=== PATIENT | male | born 1965 | race Caucasian/White ===

== ENCOUNTER 2017-06-20 09:23 | Inpatient (IN) | payer BC ==
[2017-05-26 08:02] VITALS: Ht 182.9 cm; Wt 152.8 kg
--- NOTE | 2017-05-26 08:44 | PAT Medication Instructions ---
Service Date May 26, 2017. Current Home Medication List Glimepiride (Glimepiride), 2 TAB PO QAM Ibuprofen (Motrin), 600 MG PO Q6H PRN for Pain Simvastatin (Zocor), 40 MG PO QPM Medication Instructions For Your Scheduled Surgery - Hold the following medications per surgeon's instructions: Ibuprofen (Motrin), 600 MG PO Q6H PRN for Pain - Hold the following medications the morning of surgery: Glimepiride (Glimepiride), 2 TAB PO QAM - Take the following medications as scheduled the night before surgery: Simvastatin (Zocor), 40 MG PO QPM Nothing to eat or drink after midnight If you have any questions please call us at [phone] or [phone] or [phone]
--- NOTE | 2017-05-26 09:19 | DIAGNOSTIC IMAGING REPORT ---
CHEST 2 VIEWS ROUTINE CLINICAL HISTORY: pat preoperative evaluation COMPARISON STUDY: No previous studies for comparison. FINDINGS: The bones soft tissues and hemidiaphragms are normal. The cardiomediastinal silhouette is normal. The lungs are clear. The pulmonary vasculature is normal. IMPRESSION: Negative chest. The above report was generated using voice recognition software. It may contain grammatical, syntax or spelling errors. Electronically signed by: Kieran Tyler M.D. 05/26/2017 9:18 AM Dictated Date/Time: 05/26/2017 9:18 AM
[2017-05-26 09:36] LABS: BASO % 0.4 %; BASO ABS # 0.03 K/uL (0-0.2); COMPLETE YES; EOS % 0.8 %; HEMATOCRIT 47.7 % (42-52); IG% 0.4 %; LYMPH % 26.6 %; MEAN CELL VOLUME 88.2 fL (80-100); MEAN CORPUSCULAR HEMOGLOBIN 31.1 pg (25-34); MEAN CORPUSCULAR HGB CONC 35.2 g/dl (32-36); MEAN PLATELET VOLUME 9.6 fL (7.4-10.4); MONO % 7.5 %; NEUT % 64.3 %; PLATELET COUNT 214 K/uL (130-400); RED BLOOD COUNT 5.41 M/uL (4.7-6.1); WHITE BLOOD COUNT 8.27 K/uL (4.8-10.8)
[2017-05-26 09:41] LABS: URINE APPEARANCE CLEAR (CLEAR); URINE BILIRUBIN NEG (NEG); URINE COLOR YELLOW; URINE EPITHELIAL CELL AUTO 0-5 /lpf (0-5); URINE NITRITE NEG (NEG); URINE PH 5.5 (4.5-7.5); URINE SPECIFIC GRAVITY 1.019 (1.000-1.030); UROBILINOGEN NEG (NEG)
[2017-05-26 09:43] LABS: MANUAL MICROSCOPIC REQUIRED? NO; REVIEW REQ? NO
[2017-05-26 09:54] LABS: PARTIAL THROMBOPLASTIN RATIO 1.1; PROTHROMBIN TIME (PATIENT) 10.5 SECONDS (9.0-12.0)
[2017-05-26 10:31] LABS: ESTIMATED AVERAGE GLUCOSE 166 mg/dl; HA1C FLAG Normal (Normal)
[2017-05-26 10:51] LABS: BUN/CREATININE RATIO 11.6 (10-20); CALCIUM 9.5 mg/dl (8.5-10.1); CREATININE 0.91 mg/dl (0.60-1.40); POTASSIUM 4.4 mmol/L (3.5-5.1)
[2017-06-20] VITALS (8 sets, daily range): BP systolic 114–145; BP diastolic 71–104; PULSE 69–94; TEMP 36.5–36.8; O2SAT 92–98
[~2017-06-20] VITALS: Ht 182.9 cm; Wt 152.8 kg
[2017-06-20] MEDS: TRANEXAMIC ACID INJ 1,000 MG in SODIUM CHLORIDE 0.9% 100ML 100 ML IV SCH ×2 (06:00→06:30)
--- NOTE | 2017-06-20 08:19 | HISTORY & PHYSICAL EXAMINATION ---
DATE OF ADMISSION: 06/20/2017 HISTORY OF PRESENT ILLNESS: The patient presents as a 51-year-old white male who presents with complaints of severe end-stage right knee DJD, who has failed attempts at conservative management including physical therapy, anti-inflammatories, relative rest, activity modification, corticosteroid injections, and viscosupplementation. He presents after thorough discussion regarding risks, complications for total knee arthroplasty, postoperative pain management, and DVT prophylaxis. PAST MEDICAL HISTORY: Consistent with hypertension. He has had previous history of angioplasty in [place] with Dr. Devlin. No history of diabetes or thyroid disease. 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 Past medical history is otherwise unremarkable. FAMILY HISTORY: Unremarkable and noncontributory. SOCIAL HISTORY: The patient denies history of smoking. He relates 6 alcoholic drinks per week. No recreational drug use is noted. PAST SURGICAL HISTORY: Significant for hernia surgery and tonsillectomy surgery. ALLERGIES: SULFA DRUGS. MEDICATIONS: Include simvastatin 40 mg daily, glyburide 4 mg p.o. q. daily, and meloxicam 15 mg p.o. daily. REVIEW OF SYSTEMS: See history of present illness for pertinent positives. PHYSICAL EXAMINATION: GENERAL: Reveals a very pleasant 51-year-old male, alert and oriented x3 in no acute distress. HEENT: Otherwise atraumatic and normocephalic. HEART: Irregular at 70 beats per minute. No murmurs noted. LUNGS: Clear. No rales, rhonchi, or wheezes noted. ABDOMEN: Soft, nontender, and nondistended. Bowel sounds are present in all 4 quadrants. RECTAL: Not performed. MUSCULOSKELETAL: Consistent with severe end-stage tricompartmental degenerative joint disease with varus alignment and subchondral cyst. PLAN: For total knee arthroplasty, postoperative pain management, DVT prophylaxis, and antibiotics as necessary.
[~2017-06-20 09:23] MED LIST: ACETAMINOPHEN 500 MG TAB PO SCH; BUPIVACAINE 0.25% 30 ML VIAL ONE; BUPIVACAINE 0.5 % 5 MG/1 ML PF 10ML VIAL ONE; CEFAZOLIN 3000 MG/65 ML D5W 65 ML IV SCH; CeleBREX 200 MG CAP PO SCH; DEXAMETHASONE 4 MG TAB PO SCH; FAMOTIDINE 20 MG TAB PO SCH; GABAPENTIN 300 MG CAP PO SCH; GLIM4TAB2 PO; IBUP600T44 PO; LACTATED RINGER'S 1000ML 1,000 ML IV SCH; LACTATED RINGER'S 1000ML 500 ML IV ONE; METOCLOPRAMIDE HCL 10 MG TAB PO SCH; ROPIVACAINE 5MG/ML 30 ML 150 MG, BUPIVACAINE/EPINEPHR 0.5% MPF 30 ML, KETOROLAC TROMETH... INFIL SCH; SIMV40TA2 PO
[2017-06-20] MEDS ORDERED: LIDOCAINE HCL 2% 2 ML VIAL (20MG/ML) ONE (09:54)
[2017-06-20] MEDS ORDERED: PROPOFOL IV EMULSION 10 MG/ML 20 ML VIAL IV ONE (09:54)
[2017-06-20] MEDS ORDERED: MIDAZOLAM HCL 1 MG/ML 2ML VIAL ONE ×2 (09:55→13:01)
--- NOTE | 2017-06-20 11:01 | History & Physical Bridge Note ---
H&P Re-Evaluation Bridge Note: I have examined the patient, reviewed the History & Physical and in the interval since the performance of the History & Physical I have noted the following changes of clinical significance: No changes noted
--- NOTE | 2017-06-20 11:09 | History & Physical Bridge Note ---
H&P Re-Evaluation Bridge Note: I have examined the patient, reviewed the History & Physical and in the interval since the performance of the History & Physical I have noted the following changes of clinical significance: please note the the H and P was amended to be left knee is the correct kneeNo changes noted
[2017-06-20] MEDS ORDERED: BACITRACIN 50000 UNIT VIAL ONE (11:39)
[2017-06-20] MEDS ORDERED: ORTHO JOINT ANESTHETIC ONE (11:39)
[2017-06-20] MEDS ORDERED: POVIDONE-IODINE OP SOLN 30 ML BTL ONE (11:39)
[2017-06-20] MEDS ORDERED: PHENYLEPHRINE 100MCG/ML 5ML SYR IV PRN (12:30)
[2017-06-20] MEDS ORDERED: EpHEDrine SULFATE INJ 50 MG/ML AMP IV PRN (12:30)
[2017-06-20] MEDS ORDERED: KETOROLAC TROMETHAMINE 30 MG/ML VIAL IV. PRN (12:30)
[2017-06-20] MEDS ORDERED: HYDROmorphone INJ 2 MG/ML SYR/VIAL IV PRN (12:30)
[2017-06-20] MEDS ORDERED: ONDANSETRON INJ 2 MG/ML 2 ML VIAL IV PRN ×2 (12:30→13:45)
[2017-06-20] MEDS ORDERED: ATROPINE SULFATE 0.1 MG/ML 5ML SYR IV PRN (12:30)
--- NOTE | 2017-06-20 13:14 | [facility] Operative Report ---
Operative Report Operative Date Jun 20, 2017. Pre-Operative Diagnosis Left knee degenerative joint disease Post-Operative Diagnosis Left knee degenerative joint disease Procedure(s) Performed Left Total Knee Arthroplasty utilizing [employer] journey to patient matched total knee arthroplasty size 8 femur 7 tibia 12 Shirley [address] Maxwell Perry [employer] Mechanic Surgeon(s) Rogelio Mendez PA-C Estimated Blood Loss 5mL Findings Severe end-stage tricompartment degenerative joint disease unresponsive to conservative therapy Specimens Specimen A. Left knee bone and tissue Complication(s) None Disposition Recovery Room / PACU Indications Severe as a truck [place] degenerative joint disease left knee not responsive to conservative therapy failed attempted injections relative rest activity modification and presents for total knee arthroplasty Description of Procedure After proper prepping and draping of the left lower extremity anterior midline incision was made over the region of the extensor extensor mechanism after meticulous hemostasis was obtained and maintained in subcutaneous tissues a medial parapatellar incision was made The patella was subluxed lateralward the medial lateral gutter were cleaned from any hypertrophic synovitis and scar tissue of the distal femoral block was placed and the distal femoral osteotomy cut was made subsequently the chamfers anterior and posterior osteotomy cuts were made utilizing the 4-in-1 block the tibia was subsequently subluxed anteriorward medial and ateral meniscal remnants were excised in their entirety remnants of the anterior and posterior cruciate ligaments were excised in their entirety excellent exposure of the proximal tibia was obtained the tibial osteotomy guide was placed on the proximal tibial osteotomy cut was made once again the knee was irrigated with copious amounts of sterile saline solution the patella was subsequently everted lateralward thickened scar tissue around the patella was removed the patella was subsequently cut utilizing a freehand technique and was drilled prepared for final preparation and placement of patella socially flexion-extension gaps were checked and the equal and symmetric trials were placed to the appropriate femoral and tibial trials with poly-spacer being placed for equal flexion and extension gaps and full range of motion including extension to 0 and flexion to 140 the trial components after having been taken to recovery range of motion was subsequently removed meticulous hemostasis was obtained and maintained subsequently a knee block injection of joint cocktail including ropivacaine 0.5% 150 mg. Bupivacaine 0.5 % epinephrine 1-200,030 mL's toradol 30 mg dexamethasone 4 mg ketamine 10 mg clonidine 100 micrograms normal saline solution 30 mg was infiltrated into the soft tissues of the posterior knee medial lateral gutters and periosteal synovium special attention was paid to protect neurovascular structures at all times subsequently trial components having been removed the knee was irrigated with sterile saline solution. debris was removed the proximal tibia was subsequently prepared and was made ready for the placement of the tibial component tibial component was also cemented and tamped into position the femoral component was subsequently placed and cemented in the position the patellar component was subsequently cemented in position because hemostasis once again obtained and maintained wound having been thoroughly irrigated with debridement and debridement lavage was performed as well as a medial parapatellar incision closed with #1 Vicryl in interrupted fashion subcutaneous was closed with #2 Vicryl skin was closed with skin clips. PA-C was necessary for prepping and drapping as well as wound closure of deep fascia Sub cutaneous tissue and skin and was necessary for the case. A sterile compressive dressing was placed patient was taken to recovery in stable condition of report dictated by Orlando I attest to the content of the Intraoperative Record and any orders documented therein. Any exceptions are noted below. I attest to the content of the Intraoperative Record and any orders documented therein. Any exceptions are noted below.
[2017-06-20] MEDS ORDERED: BISACODYL 10 MG SUPP PR PRN (13:45)
[2017-06-20] MEDS ORDERED: MoRPHine SULFATE 2 MG/ML CARP IV PRN ×2 (13:45→16:00)
[2017-06-20] MEDS ORDERED: MAGNESIUM HYDROXIDE SUSP 30 ML UDC PO PRN (13:45)
[2017-06-20] MEDS ORDERED: ALUMINUM/MAGNESIUM/SIMETH (MAALOX MAX) 30 ML UDC PO PRN (13:45)
--- NOTE | 2017-06-20 14:16 | Anesthesiology Progress Note ---
Anesthesia Post Op Note Date & Time Jun 20, 2017 at 14:16 Vital Signs Pain Intensity: 0 Vital Signs Past 12 Hours Date Time Temp Pulse Resp B/P (MAP) Pulse Ox O2 Delivery O2 Flow Rate FiO2 06/20/17 14:05 70 18 132/82 96 Nasal Cannula 2 06/20/17 13:55 76 18 114/75 96 Nasal Cannula 2 06/20/17 13:53 114/75 06/20/17 13:53 114/75 06/20/17 13:51 53/49 06/20/17 13:51 53/49 06/20/17 13:50 75 13 06/20/17 13:50 75 13 95 06/20/17 13:50 75 13 06/20/17 13:50 75 13 95 06/20/17 13:45 79 13 110/67 95 06/20/17 13:45 79 13 06/20/17 13:45 79 13 06/20/17 13:45 36.4 76 18 110/67 98 Nasal Cannula 2 06/20/17 13:45 79 13 110/67 95 06/20/17 10:31 36.6 86 18 143/104 93 Room Air Notes Mental Status: alert / awake / arousable, participated in evaluation Pt Amnestic to Procedure: Yes Nausea / Vomiting: adequately controlled Pain: adequately controlled Airway Patency, RR, SpO2: stable & adequate BP & HR: stable & adequate Hydration State: stable & adequate Anesthetic Complications: no major complications apparent
--- NOTE | 2017-06-20 14:16 | DIAGNOSTIC IMAGING REPORT ---
LEFT KNEE 1 OR 2 VIEWS ROUTINE CLINICAL HISTORY: Osteoarthritis. Postop study. COMPARISON: None. DISCUSSION: There are postsurgical changes of a total left knee arthroplasty and patellar resurfacing. The femoral and tibial components appear well seated. Overlying skin kendal and surgical drains are evident. There is air within the soft tissues consistent with recent surgery. IMPRESSION: Postsurgical changes of a total left knee arthroplasty Electronically signed by: Karl Aldridge M.D. 06/20/2017 2:15 PM Dictated Date/Time: 06/20/2017 2:14 PM
[2017-06-20] MEDS ORDERED: GLUCOSE 10 TABS/TUBE PO PRN (15:00)
[2017-06-20] MEDS ORDERED: GLUCAGON FOR INJ 1 MG VIAL SQ PRN (15:00)
[2017-06-20] MEDS ORDERED: GLUCOSE 40% GEL 15 GM TUBE PO PRN (15:00)
[2017-06-20] MEDS ORDERED: DEXTROSE 50% 50 ML SYR IV PRN (15:00)
[2017-06-20] MEDS ORDERED: MoRPHine SULFATE 10 MG/ML CARP/VIAL IV PRN (16:00)
[2017-06-20] MEDS ORDERED: MoRPHine SULFATE 4 MG/ML 1 ML CARP\\VIAL IV PRN (16:00)
[2017-06-20] MEDS: SODIUM CHLORIDE 0.9% 1000ML 1,000 ML IV SCH (16:12)
[2017-06-20] MEDS: ACETAMINOPHEN 500 MG TAB PO SCH ×2 (16:13→21:41)
[2017-06-20] MEDS ORDERED: PNEUMOCOCCAL ADMINISTRATION CHARGE ONE (16:30)
[2017-06-20] MEDS ORDERED: PNEUMOCOCCAL POLYSACCHARIDES 25 MCG/0.5 ML VIAL/SYR IM. ONE (16:30)
[2017-06-20] MEDS: INSULIN ASPART 100 UNITS/ML 3 ML PEN SC SCH ×2 (17:23→21:42)
[2017-06-20] MEDS: FERROUS GLUCONATE 324 MG TAB PO SCH (17:24)
[2017-06-20] MEDS: KETOROLAC TROMETHAMINE 30 MG/ML VIAL IV. SCH (19:07)
[2017-06-20] MEDS: CEFAZOLIN IV 2,000 MG in DEXTROSE 5% 50ML 50 ML IV SCH (20:19)
[2017-06-20] MEDS: SIMVASTATIN 40 MG TAB PO SCH (20:33)
[2017-06-20] MEDS: ASPIRIN 81 MG ECTAB PO SCH (20:33)
[2017-06-20] MEDS: DOCUSATE SODIUM 100 MG CAP PO SCH (20:33)
[2017-06-20] MEDS: OXYCODONE HCL 10 MG TABCR (OXYCONTIN) PO SCH (20:33)
[2017-06-20] MEDS: SENNA 8.6 MG TAB PO SCH (20:33)
[2017-06-21] MEDS: SODIUM CHLORIDE 0.9% 1000ML 1,000 ML IV SCH ×2 (00:10→11:10)
[2017-06-21] MEDS: KETOROLAC TROMETHAMINE 30 MG/ML VIAL IV. SCH ×3 (00:45→13:50)
[2017-06-21 04:07] VITALS: BP 146/71; PULSE 97; TEMP 36.7; O2SAT 98
[2017-06-21] MEDS: CEFAZOLIN IV 2,000 MG in DEXTROSE 5% 50ML 50 ML IV SCH (04:07)
[2017-06-21] MEDS ORDERED: LACTATED RINGER'S 1000ML 500 ML IV ONE (06:00)
[2017-06-21] MEDS ORDERED: GABAPENTIN 300 MG CAP PO SCH (06:00)
[2017-06-21] MEDS ORDERED: ACETAMINOPHEN 500 MG TAB PO SCH (06:00)
[2017-06-21] MEDS ORDERED: CeleBREX 200 MG CAP PO SCH (06:00)
[2017-06-21] MEDS ORDERED: LACTATED RINGER'S 1000ML 1,000 ML IV SCH ×2 (06:00)
[2017-06-21] MEDS ORDERED: DEXAMETHASONE 4 MG TAB PO SCH (06:00)
[2017-06-21] MEDS ORDERED: ROPIVACAINE 5MG/ML 30 ML 150 MG, BUPIVACAINE/EPINEPHR 0.5% MPF 30 ML, KETOROLAC TROMETH... INFIL SCH ×7 (06:00)
[2017-06-21] MEDS ORDERED: TRANEXAMIC ACID INJ 1,000 MG in SODIUM CHLORIDE 0.9% 100ML 100 ML IV SCH (06:00)
[2017-06-21] MEDS ORDERED: FAMOTIDINE 20 MG TAB PO SCH (06:00)
[2017-06-21] MEDS ORDERED: METOCLOPRAMIDE HCL 10 MG TAB PO SCH (06:00)
[2017-06-21] MEDS ORDERED: CEFAZOLIN 3000 MG/65 ML D5W 65 ML IV SCH (06:00)
[2017-06-21] MEDS: ACETAMINOPHEN 500 MG TAB PO SCH ×3 (06:24→21:34)
[2017-06-21 07:03] VITALS: BP 137/80; PULSE 84; TEMP 36.5; O2SAT 98
[2017-06-21 08:25] LABS: HEMATOCRIT 43.9 % (42-52); MEAN CELL VOLUME 86.1 fL (80-100); MEAN CORPUSCULAR HEMOGLOBIN 31.2 pg (25-34); MEAN CORPUSCULAR HGB CONC 36.2 g/dl (32-36); MEAN PLATELET VOLUME 9.7 fL (7.4-10.4); PLATELET COUNT 263 K/uL (130-400)
[2017-06-21] MEDS: ASPIRIN 81 MG ECTAB PO SCH ×2 (08:29→21:33)
[2017-06-21] MEDS: PANTOprazole SOD 40 MG TAB PO SCH (08:29)
[2017-06-21] MEDS: GLIMEPIRIDE 2 MG TAB PO SCH (08:30)
[2017-06-21] MEDS: FERROUS GLUCONATE 324 MG TAB PO SCH ×3 (08:30→18:21)
[2017-06-21] MEDS: OXYCODONE HCL 10 MG TABCR (OXYCONTIN) PO SCH ×2 (08:30→21:32)
[2017-06-21] MEDS: DOCUSATE SODIUM 100 MG CAP PO SCH ×2 (08:30→21:33)
[2017-06-21] MEDS: MULTIVITAMIN TAB PO SCH (08:30)
--- NOTE | 2017-06-21 08:33 | Orthopedic Progress Note ---
Orthopedic Progress Note Date of Service Jun 21, 2017. Subjective Post OP Day: 1 (s/p Right TKA) Reports: feeling well, pain controlled w PO medications, Denies: complaints, chest pain, SOB, nausea / vomiting, light headedness, calf pain Objective calves soft nontender, N/V intact, capillary refill less than 2 sec., dressing C /D/I, A&O x3, toes mobile, hemovac drainage (225cc/8 hours) Date Time Temp Pulse Resp B/P (MAP) Pulse Ox O2 Delivery O2 Flow Rate FiO2 06/21/17 08:20 Room Air 06/21/17 07:03 36.5 84 19 137/80 (99) 98 Room Air 06/21/17 04:07 36.7 97 16 146/71 (96) 98 Room Air 06/21/17 00:13 Nasal Cannula 2.0 06/20/17 23:38 36.8 92 16 122/71 (88) 98 Nasal Cannula 2.0 06/20/17 20:39 36.6 94 16 114/81 (92) 95 Room Air 06/20/17 18:18 36.5 69 18 134/77 (96) 92 Nasal Cannula 2.0 06/20/17 17:18 36.5 75 18 145/79 (101) 95 Nasal Cannula 2.0 06/20/17 16:16 36.6 69 20 144/90 (108) 96 Nasal Cannula 2.0 06/20/17 15:47 36.5 72 20 134/84 (101) 95 Nasal Cannula 2.0 06/20/17 15:15 97 Nasal Cannula 2.0 06/20/17 15:15 97 Nasal Cannula 2.0 06/20/17 15:15 36.6 72 16 131/82 (98) 97 Nasal Cannula 2.0 06/20/17 15:00 77 18 119/78 97 Nasal Cannula 2 06/20/17 14:45 66 18 122/76 97 Nasal Cannula 2 06/20/17 14:35 70 18 109/80 97 Nasal Cannula 2 06/20/17 14:25 36 70 18 122/77 97 Nasal Cannula 2 06/20/17 14:15 70 18 122/81 96 Nasal Cannula 2 06/20/17 14:05 70 18 132/82 96 Nasal Cannula 2 06/20/17 13:55 76 18 114/75 96 Nasal Cannula 2 06/20/17 13:53 114/75 06/20/17 13:53 114/75 06/20/17 13:51 53/49 06/20/17 13:51 53/49 06/20/17 13:50 75 13 06/20/17 13:50 75 13 95 06/20/17 13:50 75 13 06/20/17 13:50 75 13 95 06/20/17 13:45 79 13 110/67 95 06/20/17 13:45 79 13 06/20/17 13:45 79 13 06/20/17 13:45 36.4 76 18 110/67 98 Nasal Cannula 2 06/20/17 13:45 79 13 110/67 95 06/20/17 10:31 36.6 86 18 143/104 93 Room Air Laboratory Results 24 Hours: Test 06/21/17 08:02 Hematocrit 43.9 % Hemoglobin 15.9 g/dL Assessment & Plan Assessment: POD #1 s/p Right TKA -PT/OT -dvt proph with nataliya/scd/asa -plan for d/c home with HHPT when stable Discharge Planning Discharge Planning: home with home health DVT Prophylaxis: TEDs, SCDs, ASA Therapy: Physical Therapy
[2017-06-21] MEDS: INSULIN ASPART 100 UNITS/ML 3 ML PEN SC SCH ×4 (08:41→21:32)
[2017-06-21 08:55] LABS: BUN/CREATININE RATIO 12.4 (10-20); CALCIUM 8.9 mg/dl (8.5-10.1); CREATININE 1.1 mg/dl (0.60-1.40); POTASSIUM 4.1 mmol/L (3.5-5.1)
--- NOTE | 2017-06-21 09:23 | Anesthesiology Progress Note ---
Anesthesia Post Op Note Date & Time Jun 21, 2017 at 09:23 Vital Signs Pain Intensity: 2.0 Vital Signs Past 12 Hours Date Time Temp Pulse Resp B/P (MAP) Pulse Ox O2 Delivery O2 Flow Rate FiO2 06/21/17 08:20 Room Air 06/21/17 07:03 36.5 84 19 137/80 (99) 98 Room Air 06/21/17 04:07 36.7 97 16 146/71 (96) 98 Room Air 06/21/17 00:13 Nasal Cannula 2.0 06/20/17 23:38 36.8 92 16 122/71 (88) 98 Nasal Cannula 2.0 Notes Mental Status: alert / awake / arousable, participated in evaluation Pt Amnestic to Procedure: Yes Nausea / Vomiting: adequately controlled Pain: adequately controlled Airway Patency, RR, SpO2: stable & adequate BP & HR: stable & adequate Hydration State: stable & adequate Neuraxial Anesthesia: was administered, sensory block resolved Anesthetic Complications: no major complications apparent
[2017-06-21 12:06] VITALS: BP 143/73; PULSE 81; TEMP 36.8; O2SAT 97
--- NOTE | 2017-06-21 14:31 | Discharge Instructions ---
Discharge Instructions Date of Service Jun 21, 2017. Admission Reason for Admission: Right Knee Osteoarthritis Discharge Discharge Diagnosis / Problem: right total knee replacement Discharge Goals Goal(s): Decrease discomfort, Improve function, Increase independence Activity Recommendations Activity Limitations: as noted below Weightbearing Status: Right weightbearing (as tolerated) . Instructions / Follow-Up Instructions / Follow-Up ACTIVITY RECOMMENDATIONS: SELF CARE INSTRUCTIONS AFTER TOTAL KNEE REPLACEMENT A. You may need to continue a physical therapy program after discharge from the hospital. There are several options available to you. Your doctor will assist you in selecting the best one for you. 1. An out-patient facility 2 to 3 times a week for therapy or home therapy. 2. Continue working on all exercises taught to you in the hospital. Your goals should be to increase bending of your knee to 90 degrees and beyond and to fully straighten your knee. B. You may progress at your own pace from walking with a walker or crutches to a cane; then to no assistive devices. C. Make walking a part of your daily routine. Be up as much as comfortable with rest periods throughout the day. Rest with leg elevation is very important. Use the ice wrap frequently for the first 3-4 weeks. D. There are no restrictions on activities. You may ride in a car, shop, participate in potato pancake frier and all social activities. E. Wear the long elastic stockings (RAN hose) 20 hours a day for 2 weeks after surgery. They can be removed several times a day for laundering and for a bath. F. You may shower, no tub baths until cleared by your doctor. SPECIAL CARE INSTRUCTIONS: VERY IMPORTANT TO READ AND REVIEW A. There are a few signs you need to watch for after you are home. Call [facility] if you notice any of the followin. Increased severe knee pain. Some pain is expected especially when you exercise. 2. Increased swelling in your leg or knee; pain or swelling of the calf muscle in either lower leg. 3. Any fluid drainage from the incision. 4. Shortness of breath or chest pain. B. Please call [facility] at if you have any concerns or questions about your operation or recovery. The doctor or his nurse will return your call promptly. C. You must take antibiotics before dental work, bladder, bowel or other surgery. Your doctor will provide you with a permanent care to carry describing this precaution. IMPORTANT: * REMEMBER TO TAKE ASPIRIN, 81 MG, TWICE DAILY FOR 4 WEEKS UNLESS OTHERWISE DIRECTED. THIS IS YOUR BLOOD THINNER. * HIGH RISK PATIENTS MAY BE PRESCRIBED A STRONGER BLOOD THINNER. THIS WILL BE PROVIDED AT DISCHARGE. * CALL IF INCREASED PAIN, REDNESS, DRAINAGE OR FEVER GREATER THAT 101. * WEAR RAN HOSE 20 HOURS PER DAY FOR 2 WEEKS. * YOU MAY HAVE A LARGE BAND-AID LIKE DRESSING (SILVERON). THIS WILL REMAIN ON YOUR INCISION FOR 7 DAYS, THEN CAN BE REMOVED. IF INCISION IS LEAKING THROUGH DRESSING, CALL THE OFFICE . FOLLOW UP VISIT: If appointment is not already scheduled: Please call [facility] to make a follow-up appointment for 2 weeks after your surgery at . Current Hospital Diet Patient's current hospital diet: Diabetes Type 2 Diet Discharge Diet Recommended Diet: Diabetes Type 2 Diet Procedures Procedures Performed: Left Total Knee Arthroplasty utilizing [employer] journey to patient matched total knee arthroplasty size 8 femur 7 tibia 12 Shirley 35 oval patella Pending Studies Studies pending at discharge: no Laboratory Results Hemoglobin A1c Test 05/26/17 08:52 Range/Units Estimated Average Glucose 166 mg/dl Hemoglobin A1c 7.4 H 4.5-5.6 % Medical Emergencies . Who to Call and When: Medical Emergencies: If at any time you feel your situation is an emergency, please call 911 immediately. . Non-Emergent Contact Non-Emergency issues call your: Primary Care Provider, Surgeon . "Provider Documentation" section prepared by Kieran Valdez. . VTE Core Measure Inpt VTE Proph given/why not?: Other Anticoagulation (aspirin 81mg po bid x 1 month), Ana Rosa Le, SCD's [place] Drug Monitoring Program Search Results: patient reviewed within database, no issues identified
[2017-06-21 15:10] VITALS: BP 162/80; PULSE 79; TEMP 36.7; O2SAT 96
[2017-06-21 15:45] VITALS: O2SAT 96
[2017-06-21] MEDS: OXYCODONE HCL IR 5 MG TAB (IMMEDIATE RELEASE) PO PRN (21:32)
[2017-06-21] MEDS: SIMVASTATIN 40 MG TAB PO SCH (21:33)
[2017-06-21] MEDS: SENNA 8.6 MG TAB PO SCH (21:33)
[2017-06-21 23:50] VITALS: BP 127/76; PULSE 82; TEMP 36.5; O2SAT 98
[2017-06-22] MEDS: OXYCODONE HCL IR 5 MG TAB (IMMEDIATE RELEASE) PO PRN ×2 (04:10→10:41)
[2017-06-22] MEDS: ACETAMINOPHEN 500 MG TAB PO SCH (05:34)
[2017-06-22 06:39] VITALS: BP 122/75; PULSE 86; TEMP 36.6; O2SAT 96
[2017-06-22 07:13] VITALS: BP 124/79; PULSE 83; TEMP 36.8; O2SAT 95
[2017-06-22] MEDS: GLIMEPIRIDE 2 MG TAB PO SCH (07:24)
[2017-06-22] MEDS: FERROUS GLUCONATE 324 MG TAB PO SCH (07:24)
[2017-06-22] MEDS: PANTOprazole SOD 40 MG TAB PO SCH (07:24)
[2017-06-22] MEDS: MULTIVITAMIN TAB PO SCH (07:25)
[2017-06-22] MEDS: OXYCODONE HCL 10 MG TABCR (OXYCONTIN) PO SCH (07:32)
[2017-06-22] MEDS: ASPIRIN 81 MG ECTAB PO SCH (07:32)
[2017-06-22] MEDS: DOCUSATE SODIUM 100 MG CAP PO SCH (07:32)
[2017-06-22] MEDS: INSULIN ASPART 100 UNITS/ML 3 ML PEN SC SCH (07:40)
--- NOTE | 2017-06-22 07:45 | Orthopedic Progress Note ---
Orthopedic Progress Note Date of Service Jun 22, 2017. Subjective Post OP Day: 2 Reports: feeling well, pain controlled w PO medications, Denies: complaints, chest pain, SOB, nausea / vomiting, light headedness, calf pain Objective calves soft nontender, N/V intact, capillary refill less than 2 sec., dressing C /D/I (silverlon intact), A&O x3, toes mobile Date Time Temp Pulse Resp B/P (MAP) Pulse Ox O2 Delivery O2 Flow Rate FiO2 06/22/17 07:13 36.8 83 20 124/79 (94) 95 Room Air 06/22/17 06:39 36.6 86 16 122/75 (91) 96 Room Air 06/22/17 01:37 Room Air 06/21/17 23:50 36.5 82 16 127/76 (93) 98 Room Air 06/21/17 15:45 96 Room Air 06/21/17 15:10 36.7 79 18 162/80 (107) 96 Room Air 06/21/17 12:06 36.8 81 16 143/73 (96) 97 Room Air 06/21/17 08:20 Room Air Laboratory Results 24 Hours: Test 06/21/17 08:02 Hematocrit 43.9 % Hemoglobin 15.9 g/dL Assessment & Plan Assessment: POD #2 s/p Right TKA -PT/OT -dvt proph with nataliya/scd/asa -plan for d/c home with HHPT when stable, likely after PT today Discharge Planning Discharge Planning: home with home health DVT Prophylaxis: TEDs, SCDs, ASA Therapy: Physical Therapy
[2017-06-22] MEDS ORDERED: ASPEC81 PO (07:48)
[2017-06-22] MEDS ORDERED: RXC5 PO (07:48)
[2017-06-22] MEDS ORDERED: ONDA8TAB6 PO (07:48)
[2017-06-22] MEDS ORDERED: CLC100 PO (07:48)
[2017-06-22] MEDS ORDERED: ACET-24 PO (07:48)
[2017-06-22] MEDS ORDERED: OXYSR10 PO (07:48)
[2017-06-22 10:17] VITALS: BP 124/79; PULSE 83; TEMP 36.8; O2SAT 95
--- NOTE | 2017-06-22 16:32 | DISCHARGE SUMMARY ---
DISCHARGE DIAGNOSIS: Degenerative joint disease, right knee. SECONDARY DIAGNOSES: Hypertension, history of angioplasty in the past, hypercholesterolemia and diabetes mellitus type 2. CONSULTS: None. COMPLICATIONS: None. PROCEDURE: Right total knee arthroplasty performed by Dr. Perry on 06/20/2017. BRIEF HISTORY: As dictated in the history and physical. HOSPITAL SUMMARY: The patient was admitted on the above date and had the above-noted surgery performed, which he tolerated well. On the first postoperative day, the patient was feeling well. Pain was controlled and he had no complaints. Calves were soft and nontender, neurovascularly intact. Dressings were clean, dry and intact. Toes were mobile. Vital signs were stable. He was afebrile and hemoglobin was 15.9 and he was started on physical therapy protocol and continued on DVT prophylaxis and pain management. By his second postoperative day, he was continuing to feel well and pain was controlled. He was progressing with his physical therapy. Dressings were intact. Toes were mobile. Calves were soft and nontender. Vital signs were stable and he was again progressing with his PT and it was felt he could be discharged to home with home health services. For further review, please see chart. LAB AND X-RAY DATA: As per chart. DISCHARGE INSTRUCTIONS: The patient was discharged to home in satisfactory condition on 06/22/2017. DIET: Diabetic. ACTIVITY: Weightbearing as tolerated, right lower extremity. Follow TK instruction sheets and special care instructions as noted. Follow up with Dr. Perry in 2 weeks. The patient is to call for an appointment if one has not been made for you. DISCHARGE MEDICATIONS: Acetaminophen 1000 mg p.o. q. 8 hours, aspirin 81 mg p.o. b.i.d. for 30 days, Colace 100 mg p.o. b.i.d., Zofran 8 mg p.o. q. 8 hours p.r.n. nausea, OxyContin 10 mg p.o. q. 12 hours, oxycodone 5-10 mg p.o. q. 4 hours p.r.n., resume taking glimepiride 4-mg tablets 2 tabs p.o. q.a.m., simvastatin 40 mg p.o. q.p.m. and stop taking ibuprofen.
== END 2017-06-22 12:24 | disposition home health service (06) | DRG 470 ==
LOC: C.ACU 09:23 → C.3E 11:00 → ENRESERV 14:09
PROVIDERS: ADMIT Orthopaedic Surgery; ATTEND Orthopaedic Surgery
PROC: 0SRD0J9 Replacement of Left Knee Joint with Synthetic Substitute, Cemented, Open Approach (ICD-10-PCS; principal; 2017-06-20 11:00)
DX: M17.12 Unilateral primary osteoarthritis, left knee (principal); Z68.41 Body mass index [BMI] 40.0-44.9, adult; I10 Essential (primary) hypertension; E66.9 Obesity, unspecified; E78.00 Pure hypercholesterolemia, unspecified; M54.5 Low back pain; M47.9 Spondylosis, unspecified; Z79.84 Long term (current) use of oral hypoglycemic drugs; Z79.1 Long term (current) use of non-steroidal anti-inflammatories (NSAID); Z79.899 Other long term (current) drug therapy

== ENCOUNTER 2019-07-23 05:46 | Inpatient (IN) ==
--- NOTE | 2019-06-27 14:13 | PAT Medication Instructions ---
Medication Instructions Date of Service June 27, 2019 Home Medications aspirin [Aspirin Low Dose] 81 mg PO QAM dulaglutide [Trulicity] 0.75 mg SUBCUT WK glimepiride 4 mg PO BID lisinopril 10 mg PO QAM meloxicam 15 mg PO QAM simvastatin 40 mg PO QAM Continue as directed dulaglutide [Trulicity] 0.75 mg SUBCUT WK ASK your surgeon for instructions meloxicam 15 mg PO QAM DO NOT take the morning of surgery glimepiride 4 mg PO BID lisinopril 10 mg PO QAM Take morning of surgery With a small sip of water, OTHERWISE NOTHING TO EAT OR DRINK AFTER MIDNIGHT: aspirin [Aspirin Low Dose] 81 mg PO QAM simvastatin 40 mg PO QAM Other Notes If you have any questions please call us at [phone] or [phone] or [phone] or [phone]
--- NOTE | 2019-06-28 09:08 | History & Physical Report ---
Date of Service June 28, 2019 date of surgery: 07-23-19 Assessment & Plan (1) Tricompartment osteoarthritis of right knee: Risks and benefits of procedure discussed in detail today, patient would like to proceed with a Right total knee replacement at [facility] as scheduled. will obtain medical clearance prior to surgery as well as obtain PATs at [facility]. Will place on ASA 81mg po bid x 1 month post op, f/u 2 weeks post op for routine post-operative care and x-ray, sooner if having any problems. will make arrangements for HHPT at the time of discharge. At this point in time, has failed conservative measures and would like to proceed with surgical intervention. History of Present Illness Chief Complaint: right knee pain Primary Care Provider: Frandy Herring Mr Mcadams is a 53 year old male who is here for a follow up of right knee pain, presents for pre-op evaluation prior to a right total knee replacement at [facility]. He complains of pain and decreased range of motion in the right knee. He states that the symptoms have been chronic non-traumatic. Currently the patient states that the symptoms are mild-moderate. The pain is described as aching and sharp. He is experiencing pain mostly medial sided and anterior knee joint .He rates his current pain as 7/10. The symptoms are aggravated by daily activities, descending stairs, ascending stairs, first steps while awake, repetitive activities and walking. In addition to right knee pain the patient is also experiencing decreased mobility, difficulty bending, pain after activity, weakness and stiffness. Patient is taking Meloxicam. he has also tried previous visco and cortisone injections with only mild relief. Allergies Allergy/AdvReac Type Severity Reaction Status Date / Time Sulfa (Sulfonamide Allergy Unknown ?REACTION, Verified 06/25/19 15:33 Antibiotics) WAS A CHILD Home Medications Home Medications Medication Instructions Recorded Confirmed Type aspirin [Aspirin Low Dose] 81 mg PO QAM 06/25/19 06/25/19 History dulaglutide [Trulicity] 0.75 mg SUBCUT WK 06/25/19 06/25/19 History glimepiride 4 mg PO BID 06/25/19 06/25/19 History lisinopril 10 mg PO QAM 06/25/19 06/25/19 History meloxicam 15 mg PO QAM 06/25/19 06/25/19 History simvastatin 40 mg PO QAM 06/25/19 06/25/19 History Past Med/Surg History Medical History Chronic back pain Degenerative disc disease Depression hx Diabetes mellitus, type 2 NIDDM Hyperlipidemia Hypertension Osteoarthritis Surgical History H/O vein stripping bilateral History of anesthesia reaction bradycardia as young child with anesthesia, no problems with recent surgeries History of cardiac cath 10+ years ago= no stents History of herniorrhaphy left inguinal (1967) History of tonsillectomy History of total knee replacement left knee Nausea and vomiting after administration of anesthetic agent Family History Mother Family history of diabetes mellitus Other FHx: lung cancer Social History Preferred Language: Danish Communication Ability: Effective Wash Operator Required: No Beliefs That Will Affect Care: None Current Living Situation: Spouse and Family Other Information That Helps Us Care for You: No Feels Safe at Home: Yes Safety Concerns: Feels Safe At This Time Smoking Status: Never smoker Tobacco Type: smokeless tobacco ; Do You Dip or Chew Tobacco: Yes (1 can/2 weeks (advised)) ; Second Hand Exposure: No ; Tobacco Cessation Education Requested by Patient: No Hx Alcohol Use: Yes Alcohol type: beer Hx Substance Use: No Review of Systems Review of Systems: All systems reviewed & are unremarkable except as noted in HPI & below Constitutional: no fever, no chills and no sweats Respiratory: no cough and no dyspnea Cardiovascular: no chest pain, no dyspnea and no orthopnea Gastrointestinal: no abdominal pain, no nausea and no vomiting Musculoskeletal: as per Subjective / HPI Physical Exam Physical Exam: Ht: 6ft 1in Wt: 149kg BP: 130/82 Pulse: 77 Constitutional: WD/WN, vitals as above no acute distress Respiratory: normal respiratory effort, lungs clear to auscultation no respiratory distress, no labored breathing and does not use accessory muscles Cardiovascular: RRR, no murmur, no edema Gastrointestinal (Abdomen): normal bowel sounds, soft, nontender, no hepatosplenomegaly Musculoskeletal: Knee: + effusion (+1 effusion), + limited ROM of knee (ROM 0/3/110), + knee ROM with crepitation, + joint line tenderness (medial joint line) and + Eva's sign positive; no deformity, no skin erythema, no ecchymosis, no valgus laxity, no varus laxity, anterior drawer test negative, Hari's sign negative and pivot shift test negative exam above in relation to patients right knee: Results & Data Diagnostic Findings right knee xray from 05-13-19 showing complete loss joint space medial compartment with overall varus alignment, there is also narrowing of the lateral compartment and patellofemoral joint. there is osteophyte formation, subchondral sclerosis noted, no loose bodies, no acute bony pathology. overall impression tricompartmental degenerative changes to the right knee.
--- NOTE | 2019-06-28 10:25 | Anesthesiology Consultation ---
Date of Service June 28, 2019 Assessment & Plan (1) Encounter for pre-operative examination: CHECK BSG AM DOS Chart Review Chart Review: Acceptable Risk for Surgery (pending surgeon-ordered PCP clearance 07/16) and Patient seen in Pre Admission Testing Teaching & Discussion Instructed NPO after midnight before surgery, except medications with 15 cc of water. Medication instructions provided according to the PAT guidelines. History Surgery Operation Date: 07/23/19 08:35 Proposed Procedures p Right Total Knee Arthroplasty - Maxwell Perry DO Height/Weight Height: 6 ft 1 in Weight: 151.2 kg Allergies Allergy/AdvReac Type Severity Reaction Status Date / Time Sulfa (Sulfonamide Allergy Unknown ?REACTION, Verified 06/25/19 15:33 Antibiotics) WAS A CHILD Medications Home Medications Medication Instructions Recorded Confirmed Last Taken aspirin [Aspirin Low Dose] 81 mg PO QAM 06/25/19 06/25/19 Unknown dulaglutide [Trulicity] 0.75 mg SUBCUT WK 06/25/19 06/25/19 Unknown glimepiride 4 mg PO BID 06/25/19 06/25/19 Unknown lisinopril 10 mg PO QAM 06/25/19 06/25/19 Unknown meloxicam 15 mg PO QAM 06/25/19 06/25/19 Unknown simvastatin 40 mg PO QAM 06/25/19 06/25/19 Unknown Past Medical History Medical History Chronic back pain Degenerative disc disease Depression hx Diabetes mellitus, type 2 NIDDM Hyperlipidemia Hypertension Morbid obesity Osteoarthritis Exercise / Class Metabolic Activity II 4-5 Yardwork/Stairs/Walk up hill (denies CP or SOB with 1 FOS) Past Family History Family History Mother Family history of diabetes mellitus Other FHx: lung cancer Past Surgical History Surgical History H/O vein stripping bilateral History of cardiac cath 10+ years ago= no stents. Pt states was 2/2 false + echo/stress History of herniorrhaphy left inguinal (1967) History of tonsillectomy History of total knee replacement left knee Nausea and vomiting after administration of anesthetic agent Single episode as a child. No issues since. Past Anesthesia History No Hx of Anesthesia Complications and No Family Hx of Anesthesia Complications History of PONV No Hx of Motion Sickness and History of PONV (single episode) Social History Smoking Status: Never smoker tobacco type: smokeless tobacco Do You Dip or Chew Tobacco: Yes (1 can/2 weeks (advised)) Hx Alcohol Use: Yes Alcohol type: beer alcohol intake frequency: a few times a month Hx Substance Use: No substance use type: does not use Review of Systems Pt denies any recent chest pain, shortness of breath, palpitations, cough, fever or URI. +shoulder pain, acute on chronic. Physical Exam Vital Signs BP: 126/78 P: 64bpm SPO2: 99% RA T: 97.8 F R: 16 Constitutional + obese ENMT Mouth: + chipped teeth (front upper L incisor); no dental restorations and no loose teeth Thyromental Distance: > or= 3.5 Finger Breadths (4) Mallampati Class: II Neck + short neck, + thick neck and + facial hair (very short goatee); neck extension not limited Respiratory normal respiratory effort Auscultation: lungs clear to auscultation bilaterally Cardiovascular Rate/Rhythm: regular rate and regular rhythm Heart Sounds: no murmur Vessels: no carotid bruit Extremities: no edema Testing Laboratory Results 06/28/19 10:34 06/28/19 10:34 PT 10.7 Seconds (9.0-12.0) 06/28/19 10:34 INR 1.0 (0.9-1.1) 06/28/19 10:34 APTT 27.3 Seconds (21.0-31.0) 06/28/19 10:34 Hemoglobin A1c 6.5 % (4.5-5.6) H 06/28/19 10:34 Urine Color Yellow 06/28/19 10:34 Urine Appearance Clear (Clear) 06/28/19 10:34 Urine pH 6.5 (4.5-7.5) 06/28/19 10:34 Ur Specific [place] 1.019 (1.000-1.030) 06/28/19 10:34 Urine Protein Negative (Negative) 06/28/19 10:34 Urine Glucose (UA) Negative (Negative) 06/28/19 10:34 Urine Ketones Negative (Negative) 06/28/19 10:34 Urine Nitrite Negative (Negative) 06/28/19 10:34 Ur Leukocyte Esterase Negative (Negative) 08/23/19 10:34 Blood Type A Positive 06/28/19 10:34 Antibody Screen NEGATIVE 06/28/19 10:34 Electrocardiogram Date: 06/28/19 Findings: + SB @ (59) Left axis deviation. Possible inferior infarct (cited on or before 05/26/17). Chest X-Ray Date: 06/28/19 Findings: + NAD
--- NOTE | 2019-06-28 10:53 | XRay Report ---
XR chest Pre-admission PA/Lat CLINICAL HISTORY: Preoperative chest COMPARISON STUDY: No previous studies for comparison. FINDINGS: The cardiac and mediastinal contours are normal. There is no evidence of focal pulmonary co nsolidation. There is no evidence of failure. No pleural effusions are visualized.[ IMPRESSION: No active disease in the chest. Electronically signed by: Karl Aldridge M.D. 06/28/2019 10:52 AM
[2019-06-28 11:48] LABS: Basophils # (auto) 0.03 K/uL (0-0.2); Basophils % (auto) 0.4 %; Eosinophils % (auto) 1.4 %; Hematocrit (blood only) 44.5 % (42-52); Hemoglobin 15.5 g/dL (14.0-18.0); Immature Granulocytes # (auto) 0.01 K/uL (0.00-0.02); Immature Granulocytes % (auto) 0.1 %; Lymphocytes % (auto) 42.4 %; Mean Corpuscular Hemoglobin 30.3 pg (25-34); Mean Corpuscular Hgb Conc 34.8 g/dL (32-36); Mean Corpuscular Volume 86.9 fL (80-100); Monocytes # (auto) 0.63 K/uL (0.11-0.59); Monocytes % (auto) 8.9 %; Neutrophils % (auto) 46.8 %; Platelet Count 206 K/uL (130-400); RDW Coefficient of Variation 13.4 % (11.5-14.5); RDW Standard Deviation 42.9 fL (36.4-46.3); Red Blood Count 5.12 M/uL (4.7-6.1); White Blood Count 7.07 K/uL (4.8-10.8)
[2019-06-28 11:51] LABS: Appearance Urine Clear (Clear); Bilirubin Urine Negative (Negative); Blood Urine Negative (Negative); Color Urine Yellow; Glucose Urine UA Negative (Negative); Ketones Urine Negative (Negative); Leukocyte Esterase Urine Negative (Negative); Nitrite Urine Negative (Negative); Protein Urine Negative (Negative); Specific Gravity Urine 1.019 (1.000-1.030); Urobilinogen Urine Negative (Negative); pH Urine 6.5 (4.5-7.5)
[2019-06-28 11:59] LABS: Partial Thromboplastin Time 27.3 Seconds (21.0-31.0); Prothrombin Time 10.7 Seconds (9.0-12.0)
[2019-06-28 12:58] LABS: Estimated Average Glucose 140 mg/dl; Hemoglobin A1C 6.5 % (4.5-5.6)
[2019-06-28 15:17] LABS: Albumin Level 3.7 gm/dl (3.4-5.0); BUN Creatinine Ratio 13.4 (10-20); Creatinine Clr Calc Pharmacy 136.8 ml/min; Est GFR (Non-African American) 88.9; Potassium 4.4 mmol/L (3.5-5.1)
[2019-07-23] MEDS ORDERED: LR 500ML BOLUS, THEN 15ML/HR IV SCH (06:00)
[2019-07-23] MEDS ORDERED: dexAMETHasone 4 MG TAB PO SCH (06:00)
[2019-07-23] MEDS ORDERED: GABAPENTIN 900 MG DOSE PO SCH (06:00)
[2019-07-23] MEDS ORDERED: FAMOTIDINE 20 MG TAB PO SCH (06:00)
[2019-07-23] MEDS ORDERED: ACETAMINOPHEN 500 MG TAB PO SCH (06:00)
[2019-07-23] MEDS ORDERED: TRANEXAMIC ACID 1,000 MG **IV Pre-op IV SCH (06:00)
[2019-07-23] MEDS ORDERED: ROPIVACAINE 0.5% HCL/PF 150 MG, BUPIVACAINE 0.5% MPF 30 ML, EPINEPHrine 30MG/30ML (OR U... INFIL SCH (06:00)
[2019-07-23] MEDS ORDERED: METOCLOPRAMIDE HCL 10 MG TABLET PO SCH (06:00)
[2019-07-23] MEDS ORDERED: CEFAZOLIN 3000MG 65 ML IV SCH (06:00)
[2019-07-23] MEDS ORDERED: TRANEXAMIC ACID 1,000 MG **IV Intra-op IV SCH (06:30)
[2019-07-23] MEDS ORDERED: BUPIVACAINE 0.5 % 5 MG/1 ML PF 10ML VIAL ONE (06:34)
[2019-07-23] MEDS ORDERED: EPINEPHrine INJ 1 MG/ML AMP ONE (06:34)
[2019-07-23] MEDS ORDERED: ROPIVACAINE 0.5% 5 MG/ML 30 ML VIAL ONE (06:34)
--- NOTE | 2019-07-23 07:21 | History & Physical Bridge Note ---
Date of Service July 23, 2019 History & Physical Bridge Note I have examined the patient, reviewed the History & Physical and in the interval since the performance of the History & Physical I have noted the following changes of clinical significance: no changes noted
[2019-07-23] MEDS ORDERED: LABETALOL HCL IV 5 MG/ML 20ML IV PRN (07:28)
[2019-07-23] MEDS ORDERED: HYDROmorphone INJ 1 MG/ML SYRINGE IV PRN (07:28)
[2019-07-23] MEDS ORDERED: ePHEDrine sulfate 50 MG/ML AMP IV PRN (07:28)
[2019-07-23] MEDS ORDERED: PHENYLEPHRINE 100MCG/ML 5ML SYR IV PRN (07:28)
[2019-07-23] MEDS ORDERED: ONDANSETRON INJ 2 MG/ML 2 ML VIAL IV PRN ×2 (07:28→11:59)
[2019-07-23] MEDS ORDERED: MEPERIDINE HCL 25 MG/ML CARP IV PRN (07:28)
[2019-07-23] MEDS ORDERED: ATROPINE SULFATE 0.1 MG/ML 10ML SYR IV PRN (07:28)
[2019-07-23] MEDS ORDERED: fentaNYL citrate 100 MCG/2 ML VIAL IV PRN (07:28)
[2019-07-23] MEDS ORDERED: BACITRACIN INJ 50,000 UNIT VIAL ONE (07:39)
[2019-07-23] MEDS ORDERED: ORTHO JOINT ANESTHETIC ONE (07:39)
[2019-07-23] MEDS ORDERED: MIDAZOLAM HCL 1 MG/ML 2ML VIAL ONE ×3 (07:44→09:44)
[2019-07-23] MEDS ORDERED: KETAMINE HCL INJ 50 MG/ML 10 ML VIAL ONE (08:54)
[2019-07-23] MEDS ORDERED: LIDOCAINE HCL 2% 2 ML VIAL/AMP(20MG/ML) INFIL ONE (09:08)
[2019-07-23] MEDS ORDERED: PROPOFOL IV EMULSION 10 MG/ML 20 ML VIAL IV ONE (09:08)
[2019-07-23] MEDS ORDERED: ONDANSETRON INJ 2 MG/ML 2 ML VIAL ONE (09:08)
--- NOTE | 2019-07-23 10:04 | Operative Report ---
Post Operative Report Pre & Post Diagnosis Operation Date: 07/23/19 08:35 Pre-Op Diagnosis: RIGHT KNEE OSTEOARTHRITIS Post-Op Diagnosis: RIGHT KNEE OSTEOARTHRITIS Procedure Operation Date: 07/23/19 08:35 Actual Procedures p Right Total Knee Arthroplasty(Right) utilizing [employer] jourwilson 2 patient matched total knee arthroplasty size 8 femur 7 tibia 12 polyethylene 35 oval patella- Maxwell Perry DO Surgeon Maxwell Perry DO Account Adjuster Rogelio MERINO Estimated Blood Loss 5 Findings Consistent with Post-Op Diagnosis Patient presents severe end-stage tricompartmental degenerative joint disease right knee no response to conservative management is failed attempted conservative management with physical therapy anti-inflammatories relative rest activity modification and the intraoperative findings included subchondral cystic changes marginal osteophyte sclerosis [id number] changes with moderate to large effusion and varus alignment Specimens Bone and cartilage Complications none Disposition Accompanied Patient To Recovery: No Disposition: Recovery Room Indications Patient presents after failed attempted conservative management and physical therapy anti-inflammatories relative rest activity modification steroid injection Visco supplementation patient presents for total knee arthroplasty Description of Procedure After the patient properly identifiedAfter proper prepping and draping of the Right lower extremity anterior midline incision was made over the region of the extensor extensor mechanism after meticulous hemostasis was obtained and ma intained in subcutaneous tissues a medial parapatellar incision was made The patella was subluxed lateralward the medial lateral gutter were cleaned from any hypertrophic synovitis and scar tissue of the distal femoral block was placed and the distal femoral osteotomy cut was made subsequently the chamfers anterior and posterior osteotomy cuts were made utilizing the 4-in-1 block the tibia was subsequently subluxed anteriorward medial and ateral meniscal remnants were excised in their entirety remnants of the anterior and posterior cruciate ligaments were excised in their entirety excellent exposure of the proximal tibia was obtained the tibial osteotomy guide was placed on the proximal tibial osteotomy cut was made once again the knee was irrigated with copious amounts of sterile saline solution the patella was subsequently everted lateralward thickened scar tissue around the patella was removed the patella was subsequently cut utilizing a freehand technique and was drilled prepared for final preparation and placement of patella socially flexion-extension gaps were checked and the equal and symmetric trials were placed to the appropriate femoral and tibial trials with poly-spacer being placed for equal flexion and extension gaps and full range of motion including extension to 0 and flexion to 140 the trial components after having been taken to recovery range of motion was subsequently removed meticulous hemostasis was obtained and maintained subsequently a knee block injection of joint cocktail including ropivacaine 0.5% 150 mg. Bupivacaine 0.5% epinephrine 1-200,030 mL's toradol 30 mg dexamethasone 4 mg ketamine 10 mg clonidine 100 micrograms normal saline solution 30 mg was infiltrated into the soft tissues of the posterior knee medial lateral gutters and periosteal synovium special attention was paid to protect neurovascular structures at all times subsequently trial components having been removed the knee was irrigated with sterile saline solution. debris was removed the proximal tibia was subsequently prepared and was made ready for the placement of the tibial component tibial component was also cemented and tamped into position the femoral component was subsequently placed and cemented in the position the patellar component was subsequently cemented in position because hemostasis once again obtained and maintained wound having been thoroughly irrigated with debridement and debridement lavage was performed as well as a medial parapatellar incision closed with #1 Vicryl in interrupted fashion subcutaneous was closed with #2 Vicryl skin was closed with skin clips. PA-C was necessary for prepping and drapping as well as wound closure of deep fascia Sub cutaneous tissue and skin and was necessary for the case. A sterile compressive dressing was placed patient was taken to recovery in stable condition of report dictated by Orlando I attest to the content of the Intraoperative Record and any orders documented therein. Any exceptions are noted below. I attest to the content of the Intraoperative Record and any orders documented therein. Any exceptions are noted below.
--- NOTE | 2019-07-23 11:14 | Anesthesiology Progress Note ---
Date of Service July 23, 2019 Anesthesia Post Procedure Vital Signs Vital Signs: Temp Pulse Pulse Resp BP Pulse Ox 07/23/19 11:10 83 13 134/72 96 07/23/19 11:00 82 24 160/78 H 94 07/23/19 10:52 36.0 C L 82 16 129/94 99 07/23/19 06:06 36.7 C 67 18 153/77 H 96 Pain Intensity Right Knee: Pain Intensity: 0 Transfer of Care Handoff Completed per policy Notes Mental Status: alert / awake / arousable Patient Amnestic to Procedure: Yes Nausea / Vomiting: adequately controlled Pain: adequately controlled Airway Patency, RR, SpO2: stable & adequate BP & HR: stable & adequate Hydration State: stable & adequate Neuraxial Anesthesia: was administered and sensory block is resolving Anesthetic Complications: no major complications apparent and Pt Satisfied with anesthetic care
--- NOTE | 2019-07-23 11:17 | XRay Report ---
XR knee RT 2V routine CLINICAL HISTORY: Postoperative evaluation. COMPARISON: None FINDINGS: Alignment of the total right knee arthroplasty is anatomic. There is no fracture or unexpe cted radiopaque foreign body. There are drains and skin kendal. IMPRESSION: Expected findings following total right knee arthroplasty. Electronically signed by: Saul Matute M.D. 07/23/2019 11:15 AM
[2019-07-23] MEDS ORDERED: NALOXONE HCL 0.4 MG/1 ML VIAL/CARP IV PRN (11:59)
[2019-07-23] MEDS ORDERED: HYDROmorphone INJ 0.5 MG/0.5 ML SYR IV PRN (11:59)
[2019-07-23] MEDS ORDERED: METOCLOPRAMIDE HCL INJ 5 MG/ML 2 ML VIAL IV PRN (11:59)
[2019-07-23] MEDS ORDERED: NON-FORMULARY MEDICATION (Dulaglutide [Trulicity] 0.75 MG) SQ SCH (11:59)
[2019-07-23] MEDS ORDERED: MAGNESIUM HYDROXIDE SUSP 30 ML UDC PO PRN (11:59)
[2019-07-23] MEDS ORDERED: SODIUM CHLORIDE 0.9% 1000ML 1,000 ML IV SCH (11:59)
[2019-07-23] MEDS ORDERED: PHARMACY GLYCEMIC MGMT CONSULT STA (11:59)
[2019-07-23] MEDS ORDERED: BISACODYL 10 MG SUPP PR PRN (11:59)
[2019-07-23] MEDS ORDERED: PHARMACY GLYCEMIC MGMT CONSULT PRN (12:24)
[2019-07-23] MEDS ORDERED: GLUCOSE 10 TABS/TUBE PO PRN (12:30)
[2019-07-23] MEDS ORDERED: GLUCAGON FOR INJ 1 MG VIAL IM PRN (12:30)
[2019-07-23] MEDS ORDERED: CARBOHYDRATES FOR HYPOGLYCEMIA PO PRN (12:30)
[2019-07-23] MEDS ORDERED: GLUCOSE 40% GEL 15 GM TUBE PO PRN (12:30)
[2019-07-23] MEDS ORDERED: DEXTROSE 50% 50 ML SYRINGE IV PRN (12:30)
[2019-07-23] MEDS ORDERED: NovoLIN-N (NPH) PER UNIT CHARGE SQ ONE (13:00)
[2019-07-23] MEDS: ACETAMINOPHEN 500 MG TAB PO SCH ×2 (13:09→21:36)
[2019-07-23] MEDS: INSULIN ASPART 100 UNITS/ML 3 ML PEN SC SCH ×3 (13:09→21:36)
[2019-07-23] MEDS: OXYCODONE HCL IR 5 MG TAB (IMMEDIATE RELEASE) PO PRN (14:37)
--- NOTE | 2019-07-23 14:39 | Pharmacy Report ---
Glycemic Control Consultation - Date of Service July 23, 2019 - Scope Scope: Glycemic Pharmacist consulted by Rogelio Mendez PA-C on 07/23/19 for glycemic control and to write orders per [facility] inpatient glycemic control protocol - Objective Weight: 151.5 kg Accuchecks BSG (last 24hrs): 07/23/19 07/23/19 07/23/19 06:13 10:56 12:15 POC Glucose 108 H 179 H 181 H HbA1c: Hemoglobin A1c 6.5 % (4.5-5.6) H 06/28/19 10:34 - Recent Pertinent Medications Outpatient Anti-diabetic Regimen: * Trulicity 0.75 mg SC weekly and glimepiride 4 mg PO BID * A1c = 6.5 % (06/28/19) Risk Factors for Insulin Resistance: * Steroids: Dexamethasone 8 mg PO x 1 * Recent Surgery: right TKA (07/23/19) * Diet: T2DM - Assessment & Plan Assessment & Plan: ASSESSMENT: * Patient s/p right total knee arthroplasty (POD #0) * Given dexamethasone 8 mg PO preoperatively * Patient's PMH includes type 2 diabetes, hypertension, hyperlipidemia, and osteoarthritis PLAN FOR INPATIENT GLYCEMIC CONTROL: * Will hold outpatient antidiabetic agents and manage with SC basal/bolus insulin * Oral agents are not recommended for inpatient use d/t drug interactions, changing PO intake, and difficulty titrating for acute hyper/hypoglycemia. ADA recommends re-initiating outpatient oral agents 1-2 days prior to discharge if/when appropriate if they were held on admission. * Basal insulin * NPH 36 unit dose given this afternoon to cover for dexamethasone-induced hyperglycemia * Dose based on adjusted body weight of 108 kg * Bolus insulin * NovoLog per scale ACHS or Q6hrs while NPO * Goal Range: Low 110 mg/dL - High 140 mg/dL * Correction Factor: 15 mg/dL/unit * Nutritional / Prandial insulin per carb ratio of 1 unit per 5 grams CHO consumed * CF and CR based on actual body-weight and stress of 2 * Please note that the plan above was derived based on current level of insulin resistance and hospital stress. These recommendations are appropriate for inpatient admission only. Plan of care upon discharge will need to be reassessed to avoid potential outpatient hypo/hyperglycemia. Thank you.
[2019-07-23] MEDS: CEFAZOLIN 2000MG 2,000 MG/15 ML SYR IV SCH (15:29)
[2019-07-23] MEDS: FERROUS GLUCONATE 324 MG TAB PO SCH (18:10)
[2019-07-23] MEDS ORDERED: GLIMEPIRIDE 2 MG TAB PO SCH (21:00)
[2019-07-23] MEDS: ASPIRIN 81 MG ECTAB PO SCH (21:36)
[2019-07-23] MEDS: DOCUSATE SODIUM 100 MG CAP PO SCH (21:36)
[2019-07-23] MEDS: SENNA 8.6 MG TAB PO SCH (21:36)
[2019-07-24] MEDS: CEFAZOLIN 2000MG 2,000 MG/15 ML SYR IV SCH (00:04)
[2019-07-24] MEDS: ACETAMINOPHEN 500 MG TAB PO SCH ×3 (05:54→21:50)
[2019-07-24] MEDS: OXYCODONE HCL IR 5 MG TAB (IMMEDIATE RELEASE) PO PRN ×2 (06:35→22:02)
[2019-07-24 06:41] LABS: Hematocrit (blood only) 40.9 % (42-52); Mean Corpuscular Hemoglobin 30.1 pg (25-34); Mean Corpuscular Hgb Conc 34.2 g/dL (32-36); Mean Platelet Volume 9.4 fL (7.4-10.4); Platelet Count 201 K/uL (130-400); RDW Coefficient of Variation 13.4 % (11.5-14.5); RDW Standard Deviation 43.1 fL (36.4-46.3); Red Blood Count 4.65 M/uL (4.7-6.1); White Blood Count 14.74 K/uL (4.8-10.8)
[2019-07-24 07:14] LABS: BUN Creatinine Ratio 15.4 (10-20); Calcium 8.5 mg/dl (8.5-10.1); Creatinine Clr Calc Pharmacy 125.4 ml/min; Est GFR (African American) 92.7; Potassium 4.2 mmol/L (3.5-5.1)
[2019-07-24] MEDS: LISINOPRIL 10 MG TAB PO SCH (08:31)
[2019-07-24] MEDS: FERROUS GLUCONATE 324 MG TAB PO SCH ×2 (08:31→18:07)
[2019-07-24] MEDS: DOCUSATE SODIUM 100 MG CAP PO SCH ×2 (08:31→20:13)
[2019-07-24] MEDS: SIMVASTATIN 40 MG TAB PO SCH (08:31)
[2019-07-24] MEDS: ASPIRIN 81 MG ECTAB PO SCH ×2 (08:31→20:13)
[2019-07-24] MEDS: MULTIVITAMIN TAB PO SCH (08:31)
[2019-07-24] MEDS: INSULIN ASPART 100 UNITS/ML 3 ML PEN SC SCH ×4 (08:34→21:49)
--- NOTE | 2019-07-24 09:26 | Pharmacy Report ---
Pharmacy Glycemic Short Note 2 - Date of Service July 24, 2019 - Glycemic Short BSG Results (Last 24 hours): 07/23/19 07/23/19 07/23/19 10:56 12:15 17:05 Glucose POC Glucose 179 H 181 H 167 H 07/23/19 07/24/19 07/24/19 20:31 06:27 08:13 Glucose 174 H POC Glucose 194 H 147 H OUTPATIENT ANTIDIABETIC REGIMEN: * Trulicity 0.75 mg SC weekly (on Sundays) * Glimepiride 4 mg PO BID ASSESSMENT: * Patient is POD #1 s/p right TKA * Patient received 8 mg PO dexamethasone in OR preoperatively yesterday * Covered with 36 units of insulin NPH (approximately 0.33 unit/kg of adjusted body weight) * Patient received 60 units of insulin yesterday * 36 units of basal insulin (covering basal needs as well as steroid-induced hyperglycemia) * 24 units of prandial/correctional insulin * BSGs over last 24 hours ranged from 108-194 mg/dL PLAN FOR INPATIENT GLYCEMIC CONTROL: * Hold outpatient antidiabetic regimen * Basal insulin * NPH 10 units SQ BID * Will add on basal insulin based on AM fasting of 174 this AM * Dose is approximately 0.2 units/kg of adjusted body weight divided in two doses * Bolus insulin * NovoLog per scale ACHS or Q6hrs while NPO * Goal Range: Low 110 mg/dL - High 140 mg/dL * Correction Factor: 15 mg/dL/unit * Nutritional / Prandial insulin per carb ratio of 1 unit per 5 grams CHO consumed PLAN FOR DISCHARGE: * Based on patient's HbA1c of 6.5% from 06/28/19, patient has good glycemic control with current regimen. * Continue Trulicity 0.75 mg SC weekly on Sundays and glimepiride 4 mg PO BID starting day after discharge in the AM
--- NOTE | 2019-07-24 09:29 | Orthopedic Progress Note ---
Date of Service July 24, 2019 Assessment & Plan (1) Status post total right knee replacement: POD #1 s/p Right TKA pt/ot dvt proph with RAN/SCD/ASA plan for d/c home with HHPT when stable Subjective POD #1 s/p Right TKA Review of Systems Constitutional: no fever, no chills and no sweats Respiratory: no cough and no dyspnea Cardiovascular: no chest pain and no dyspnea Gastrointestinal: no abdominal pain, no nausea and no vomiting Physical Exam Physical Exam: Vital Signs Temp Pulse Pulse Resp BP Pulse Ox 07/24/19 07:10 36.4 C L 79 16 134/82 94 07/24/19 03:29 36.6 C 73 16 117/71 99 07/23/19 22:52 36.4 C L 75 16 112/69 95 07/23/19 20:33 36.7 C 82 16 124/79 91 07/23/19 15:21 36.5 C 85 17 127/74 93 07/23/19 14:40 36.6 C 63 18 117/73 95 07/23/19 13:47 36.6 C 77 18 105/66 96 07/23/19 12:47 76 18 108/65 95 07/23/19 12:13 67 18 130/70 96 07/23/19 11:45 36.4 C L 63 18 142/75 H 98 07/23/19 11:30 36.5 C 61 14 133/82 92 07/23/19 11:20 66 19 140/79 93 07/23/19 11:10 83 13 134/72 96 07/23/19 11:00 82 24 160/78 H 94 07/23/19 10:52 36.0 C L 82 16 129/94 99 Intake and Output 07/23/19 07/24/19 07/24/19 22:59 06:59 14:59 Intake Total 945 / 1930 Output Total 2049 / 4970 1600 / 4970 Balance -1105 / -3040 -1600 / -3040 Intake: IV 695 / 1080 Nss 1000ML 1,0 00 ml @ 100 mls/ 695 / 695 hr IV .Q10H SC H Rx#:[id number] Oral 250 / 250 Output: Urine 1750 / 4150 1250 / 4150 Drain Output 300 / 815 350 / 815 Right Knee Hem ovac 300 / 815 350 / 815 Other: # Unmeasured Voi ds 1 Constitutional: WD/WN, vitals as above Musculoskeletal: Right Leg: NVDI, calf SNT, negative cyndy sign. DP palpable, able to wiggle toes/ankle movement without difficulty. dressing clean dry and intact. Results & Data Vital Signs (Past 12 Hours) Vital Signs Temp Pulse Resp BP Pulse Ox 07/24/19 07:10 36.4 C L 79 16 134/82 94 07/24/19 03:29 36.6 C 73 16 117/71 99 07/23/19 22:52 36.4 C L 75 16 112/69 95 Laboratory Results Laboratory Results WBC 14.74 K/uL (4.8-10.8) H 07/24/19 06:27 RBC 4.65 M/uL (4.7-6.1) L 07/24/19 06:27 Hgb 14.0 g/dL (14.0-18.0) 07/24/19 06:27 Hct 40.9 % (42-52) L 07/24/19 06:27 MCV 88.0 fL (80-100) 07/24/19 06:27 MCH 30.1 pg (25-34) 07/24/19 06:27 MCHC 34.2 g/dL (32-36) 07/24/19 06:27 RDW Std Deviation 43.1 fL (36.4-46.3) 07/24/19 06:27 RDW Coeff of Sudhakar 13.4 % (11.5-14.5) 07/24/19 06:27 Plt Count 201 K/uL (130-400) 07/24/19 06:27 MPV 9.4 fL (7.4-10.4) 07/24/19 06:27 Immature Gran % (Auto) 0.1 % 06/28/19 10:34 Neut % (Auto) 46.8 % 06/28/19 10:34 Lymph % (Auto) 42.4 % 06/28/19 10:34 [place] % (Auto) 8.9 % 06/28/19 10:34 Eos % (Auto) 1.4 % 06/28/19 10:34 Baso % (Auto) 0.4 % 06/28/19 10:34 Immature Gran # (Auto) 0.01 K/uL (0.00-0.02) 06/28/19 10:34 Neut # (Auto) 3.30 K/uL (1.4-6.5) 06/28/19 10:34 Lymph # (Auto) 3.00 K/uL (1.2-3.4) 06/28/19 10:34 [place] # (Auto) 0.63 K/uL (0.11-0.59) H 06/28/19 10:34 Eos # (Auto) 0.10 K/uL (0-0.5) 06/28/19 10:34 Baso # (Auto) 0.03 K/uL (0-0.2) 06/28/19 10:34 PT 10.7 Seconds (9.0-12.0) 06/28/19 10:34 INR 1.0 (0.9-1.1) 06/28/19 10:34 APTT 27.3 Seconds (21.0-31.0) 06/28/19 10:34 PTT Ratio 1.0 06/28/19 10:34 Sodium 139 mmol/L (136-145) 07/24/19 06:27 Potassium 4.2 mmol/L (3.5-5.1) 07/24/19 06:27 Chloride 105 mmol/L (98-107) 07/24/19 06:27 Carbon Dioxide 29 mmol/L (21-32) 07/24/19 06:27 Anion Gap 5.0 (3-11) 07/24/19 06:27 BUN 17 mg/dl (7-18) 07/24/19 06:27 Creatinine 1.07 mg/dl (0.6-1.4) 07/24/19 06:27 Est Cr Clr Drug Dosing 125.4 ml/min 07/24/19 06:27 Est GFR ( Amer) 92.7 07/24/19 06:27 Est GFR (Non-Af Amer) 80.0 07/24/19 06:27 BUN/Creatinine Ratio 15.4 (10-20) 07/24/19 06:27 Glucose 174 mg/dl (70-99) H 07/24/19 06:27 POC Glucose 147 (70-99) H 07/24/19 08:13 Estimat Average Glucose 140 mg/dl 06/28/19 10:34 Hemoglobin A1c 6.5 % (4.5-5.6) H 06/28/19 10:34 Calcium 8.5 mg/dl (8.5-10.1) 07/24/19 06:27 Albumin 3.7 gm/dl (3.4-5.0) 06/28/19 10:34 Urine Color Yellow 06/28/19 10:34 Urine Appearance Clear (Clear) 06/28/19 10:34 Urine pH 6.5 (4.5-7.5) 06/28/19 10:34 Ur Specific [place] 1.019 (1.000-1.030) 06/28/19 10:34 Urine Protein Negative (Negative) 06/28/19 10:34 Urine Glucose (UA) Negative (Negative) 06/28/19 10:34 Urine Ketones Negative (Negative) 06/28/19 10:34 Urine Blood Negative (Negative) 06/28/19 10:34 Urine Nitrite Negative (Negative) 06/28/19 10:34 Urine Bilirubin Negative (Negative) 06/28/19 10:34 Urine Urobilinogen Negative (Negative) 06/28/19 10:34 Ur Leukocyte Esterase Negative (Negative) 06/28/19 10:34 Blood Type A Positive 06/28/19 10:34 Antibody Screen NEGATIVE 06/28/19 10:34 Diagnostic Findings XR knee RT 2V routine CLINICAL HISTORY: Postoperative evaluation. COMPARISON: None FINDINGS: Alignment of the total right knee arthroplasty is anatomic. There is no fracture or unexpected radiopaque foreign body. There are drains and skin kendal. IMPRESSION: Expected findings following total right knee arthroplasty.
--- NOTE | 2019-07-24 09:37 | Anesthesiology Progress Note ---
Date of Service July 24, 2019 Anesthesia Post Procedure Vital Signs Vital Signs: Temp Pulse Pulse Resp BP Pulse Ox 07/24/19 07:10 36.4 C L 79 16 134/82 94 07/24/19 03:29 36.6 C 73 16 117/71 99 07/23/19 22:52 36.4 C L 75 16 112/69 95 07/23/19 20:33 36.7 C 82 16 124/79 91 07/23/19 15:21 36.5 C 85 17 127/74 93 07/23/19 14:40 36.6 C 63 18 117/73 95 07/23/19 13:47 36.6 C 77 18 105/66 96 07/23/19 12:47 76 18 108/65 95 07/23/19 12:13 67 18 130/70 96 07/23/19 11:45 36.4 C L 63 18 142/75 H 98 07/23/19 11:30 36.5 C 61 14 133/82 92 07/23/19 11:20 66 19 140/79 93 07/23/19 11:10 83 13 134/72 96 07/23/19 11:00 82 24 160/78 H 94 07/23/19 10:52 36.0 C L 82 16 129/94 99 Pain Intensity Right Knee: Pain Intensity: 4 Notes Mental Status: alert / awake / arousable and participated in evaluation Patient Amnestic to Procedure: Yes Nausea / Vomiting: adequately controlled Pain: adequately controlled Airway Patency, RR, SpO2: stable & adequate Hydration State: stable & adequate Neuraxial Anesthesia: was administered and sensory block is resolving Anesthetic Complications: no major complications apparent and Pt Satisfied with anesthetic care
[2019-07-24] MEDS: INSULIN HUMAN NPH SC SCH ×2 (11:05→18:08)
[2019-07-24] MEDS: SENNA 8.6 MG TAB PO SCH (20:13)
[2019-07-25] MEDS: ACETAMINOPHEN 500 MG TAB PO SCH (05:36)
[2019-07-25] MEDS: OXYCODONE HCL IR 5 MG TAB (IMMEDIATE RELEASE) PO PRN ×2 (07:30→11:17)
[2019-07-25] MEDS: LISINOPRIL 10 MG TAB PO SCH (07:31)
[2019-07-25] MEDS: ASPIRIN 81 MG ECTAB PO SCH (07:31)
[2019-07-25] MEDS: SIMVASTATIN 40 MG TAB PO SCH (07:32)
[2019-07-25] MEDS: MULTIVITAMIN TAB PO SCH (07:32)
[2019-07-25] MEDS: FERROUS GLUCONATE 324 MG TAB PO SCH (07:32)
[2019-07-25] MEDS: DOCUSATE SODIUM 100 MG CAP PO SCH (07:32)
[2019-07-25] MEDS: INSULIN HUMAN NPH SC SCH (07:33)
[2019-07-25] MEDS: INSULIN ASPART 100 UNITS/ML 3 ML PEN SC SCH (07:36)
--- NOTE | 2019-07-25 10:46 | Orthopedic Progress Note ---
Date of Service July 25, 2019 Assessment & Plan (1) Status post total right knee replacement: Postop day 2 status post right total knee arthroplasty. Patient progressing well with his physical therapy and remaining stable. Plan for discharge to home today with home health services. Subjective Postop day 2 status post right total knee arthroplasty. Patient is currently sitting up in bed. Awake and alert. Pain is controlled. Denies any shortness of breath, chest pain, lightheadedness. Patient is anxious to go home. He states that he did well with physical therapy. Physical Exam Physical Exam: Reba dressing is clean, dry, and intact. There is no overt drainage noted on the dressing. Calves are soft and nontender. Neurovascular is intact. Toes are mobile. Results & Data Vital Signs (Past 12 Hours) Vital Signs Temp Pulse Resp BP BP Pulse Ox 07/25/19 06:24 36.8 C 87 18 132/72 97 07/24/19 22:49 36.9 C 82 16 107/73 98
--- NOTE | 2019-07-30 22:26 | Discharge Summary ---
DISCHARGE DIAGNOSIS: Degenerative joint disease, right knee. SECONDARY DIAGNOSES: Chronic back pain with degenerative disc disease, depression, diabetes mellitus type 2, hyperlipidemia, hypertension. CONSULTS: None. COMPLICATIONS: None. PROCEDURES: Right total knee arthroplasty performed by Dr. Perry on 07/23/2019. BRIEF HISTORY: As dictated in the history and physical. HOSPITAL SUMMARY: The patient was admitted on the above-noted date and had the above-noted surgery performed, which he tolerated well. On the first postoperative day, the patient was without complaints and pain was controlled. Vital signs were stable and they were afebrile. Dressings were clean, dry and intact. Calves were soft, nontender, neurovascularly intact. Toes were mobile and they were started on PT and OT protocol, continued on DVT prophylaxis and pain management. Plans for home health services upon discharge. By the second postoperative day, the patient was currently sitting up in bed, awake and alert. Pain was controlled. Denied any shortness of breath, chest pain or lightheadedness. The patient was anxious to go home and stated that he did well with PT. ANYI dressing was clean, dry and intact. There was no overt drainage noted on the dressing. Calves were soft and nontender. Neurovascular was intact. Toes were mobile. The patient was progressing well with his PT, remaining stable and was discharged to home on 07/25/2019. For further review, please see chart. LABORATORY AND X-RAY DATA: As per chart. DISCHARGE INSTRUCTIONS: The patient was discharged to home in satisfactory condition on 07/25/2019. Diet: Diabetic. Activity: Weightbearing as tolerated on the right lower extremity with walker. Follow TK instruction sheets and special care instructions as noted. Follow up with Dr. Perry in 2 weeks. The patient is to call for appointment if one has not been made for you. DISCHARGE MEDICATIONS: Acetaminophen 1000 mg p.o. q. 8 hours, aspirin 81 mg p.o. b.i.d., cefadroxil 500 mg p.o. b.i.d., oxycodone 5-10 mg p.o. q. 6 hours p.r.n., sennosides 17.2 mg p.o. at bedtime. Resume home meds as listed. Stop taking previous aspirin dosage and meloxicam.
== END 2019-07-25 11:58 | disposition home health service (06) | DRG 470 ==
LOC: ASU 05:46 → 3E 11:03